=== PATIENT | male | born 1980 | race Caucasian/White ===

== ENCOUNTER 2021-02-20 17:56 | Emergency (ER) | payer SELFPAY ==
--- NOTE | 2021-02-20 18:37 | PC.NURSE ---
pt left before being triaged.
== END 2021-02-20 19:18 | disposition left against medical advice (07) ==
LOC: ANHED 19:15
PROVIDERS: PCP Internal Medicine
DX: Z53.21 Procedure and treatment not carried out due to patient leaving prior to being seen by health care provider (principal)
CPT/HCPCS: 99199